=== PATIENT | male | born 1950 | race Caucasian/White ===

== ENCOUNTER 2017-02-03 19:40 | Emergency (ER) | payer MEDICARE, OTHER ==
[2017-02-03] MEDS ORDERED: ORPHENADRINE CITRATE 60MG/2ML VIAL IM ONE (19:51)
[2017-02-03] MEDS ORDERED: HYDROCODONE/APAP 5/325MG TABLET PO ONE ×2 (19:51→20:18)
--- NOTE | 2017-02-03 19:56 | Emergency Department Record ---
History of Present Illness - General Chief Complaint: Back Pain/Injury Stated Complaint: BACK PAIN Time Seen by Provider: 02/03/17 19:50 Source: Patient Mode of Arrival: Ambulatory Limitations: No limitations - History of Present Illness Initial Comments: 66 yo male presents with low back pain on the right. He was lifting a heavy board the day prior. He has had recurrent similar pain in this area prior. He has pain with standing, lifting, twisting, bending. No abdominal pain. No weakness or changes in sensation. No radiation to the legs. No hematuria. No changes in bowel movements. PCP is Adan Mayberry MD Complaint: Back pain, Back injury (Lifting a heavy board the day prior) -: Days(s) (2) Place: Home Radiation: None Severity: Moderate Quality: Aching Consistency: Constant Improves With: Immobilization Worsens With: Immobilization Context: Turning/twisting Associated Symptoms: Denies other symptoms - Related Data Home Medications Medication Instructions Recorded Confirmed Last Taken Omeprazole [Prilosec] 20 mg PO DAILY 02/03/17 02/03/17 02/03/17 Previous Rx's Medication Instructions Recorded Cyclobenzaprine HCl [Flexeril] 10 mg PO TID #25 tablet 02/03/17 Hydrocodone/Acetaminophen [[place] 1 each PO Q6H PRN #20 tablet 02/03/17 5-325 Tablet] Allergies Allergy/AdvReac Type Severity Reaction Status Date / Time No Known Drug Allergies Allergy Verified 02/03/17 19:57 Review of Systems Constitutional: Denies: Chills, Fever, Malaise, Weakness Eyes: Denies: Eye discharge ENT: Denies: Congestion, Throat pain Respiratory: Denies: Cough, Dyspnea, Hemoptysis, Stridor, Wheezes Cardiovascular: Denies: Chest pain, Palpitations, Syncope Endocrine: Denies: Fatigue Gastrointestinal: Denies: Abdominal pain, Diarrhea, Hematochezia, Melena, Nausea , Vomiting Genitourinary: Denies: Dysuria, Frequency, Hematuria, Retention, Testicular pain , Urgency Musculoskeletal: Reports: As per HPI, Back pain, Myalgia. Denies: Arthralgia Skin: Denies: Bruising, Change in color, Rash Neurological: Denies: Headache Psychiatric: Denies: Anxiety Hematological/Lymphatic: Denies: Blood Clots, Easy bleeding, Easy bruising, Swollen glands Physical Exam - General General Appearance: Alert, Oriented x3, Cooperative, No acute distress Limitations: No limitations - Head Head exam: Normal inspection - Eye Eye exam: Normal appearance - ENT ENT exam: Normal exam Ear exam: Normal external inspection Nasal Exam: Normal inspection Mouth exam: Normal external inspection Teeth exam: Normal inspection - Neck Neck exam: Normal inspection - Respiratory Respiratory exam: Normal lung sounds bilaterally. negative: Respiratory distress - Cardiovascular Cardiovascular Exam: Regular rate, Normal rhythm, Normal heart sounds Peripheral Pulses: 2+: Radial (R), Radial (L) - GI/Abdominal GI/Abdominal exam: Soft. negative: Distended, Pulsatile mass, Tenderness - Rectal Rectal exam: Deferred - exam: Deferred - Extremities Extremities exam: Normal inspection, Full ROM, Normal capillary refill. negative: Calf tenderness, Joint swelling, Pedal edema, Tenderness - Back Back exam: Reports: Normal inspection, Muscle spasm, Tenderness. Denies: CVA tenderness (R), CVA tenderness (L), Full ROM (muscle spasm), Rash noted, Vertebral tenderness Image of Body Front/Back: 1 - Tenderness to the right lower back/ lumbar area with reproducible tenderness, pain with trying to stand and twist relieved if sitting still - Neurological Neurological exam: Alert, Normal gait, Oriented X3, Reflexes normal. negative: Abnormal gait (ambulated to the room unassisted), Altered, Motor sensory deficit - Psychiatric Psychiatric exam: Normal affect, Normal mood. negative: Agitated, Anxious - Skin Skin exam: Dry, Intact, Normal color, Warm Course Vital Signs 02/03/17 19:47 Temperature 98.7 F Pulse Rate [ 77 Pulse Ox Probe] Respiratory 16 Rate Blood Pressure 163/94 [Left Arm] Pulse Ox 95 - Reevaluation(s) Reevaluation #1: The patient is doing better We discussed home care and DC We discussed reasons to return to the ED 02/03/17 20:19 Disposition Disposition: Discharge Clinical Impression: Lumbar strain Qualifiers: Encounter type: initial encounter Qualified Code(s): S39.012A - Strain of muscle, fascia and tendon of lower back, initial encounter Disposition: Home, Self-Care Condition: (1) Good Instructions: Low Back Strain (ED) Additional Instructions: Return if you have any new symptoms or concerns Rest and avoid lifting or over exertion Prescriptions: Cyclobenzaprine HCl [Flexeril] 10 mg PO TID #25 tablet Hydrocodone/Acetaminophen [[place] 5-325 Tablet] 1 each PO Q6H PRN #20 tablet PRN Reason: pain Forms: Patient Portal Access Time of Disposition: 20:04
[2017-02-03] MEDS ORDERED: CYCLOBENZAPRINE 10MG TABLET PO ONE (20:18)
== END 2017-02-03 20:44 | disposition home or self-care (01) ==
LOC: ER 19:40
DX: S39.012A Strain of muscle, fascia and tendon of lower back, initial encounter (principal); X50.0XXA Overexertion from strenuous movement or load, initial encounter; Y92.009 Unspecified place in unspecified non-institutional (private) residence as the place of occurrence of the external cause
CPT/HCPCS: 96372; 99283; J2360

== ENCOUNTER 2018-11-02 21:46 | Emergency (ER) | payer MEDICARE, OTHER ==
[2018-11-02] MEDS ORDERED: 0.9 % SODIUM CHLORIDE 1,000 ML BAG IV ONE (22:07)
[2018-11-02] MEDS ORDERED: ONDANSETRON HCL IV 4 MG/2 ML VIAL IV ONE (22:07)
--- NOTE | 2018-11-02 22:14 | Emergency Department Record ---
History of Present Illness - General Chief Complaint: Abdominal Pain Stated Complaint: ABD PAIN Time Seen by Provider: 11/02/18 21:57 Source: Patient Mode of Arrival: Ambulatory Limitations: No limitations - History of Present Illness Initial Comments: The patient is here due to a 5 day hx of intermittent AP. The pain is sharp and stabbing and located in the LUQ and LLQ. The onset is after eating. The pain first started 5 days ago and then got worse yesterday. Tonight it became worse after eating so the patient took Tylenol and Advil and it now has resolved. The patient denies any CP, SOB, back pain, nausea, vomiting, diarrhea, fever or any previous abdominal surgeries. He has no hx of similar problems and presently is feeling much better. MD Complaint: Abdominal pain Onset/Timin -: Days(s) Location: LUQ, LLQ Radiation: Other Migration to: Other Severity: Moderate Severity scale (1-10): 5 Quality: Sharp, Stabbing Consistency: Intermittent Improves With: Medication Worsens With: Eating Context: Recent surgery/procedure Associated Symptoms: Other Treatments Prior to Arrival: Other - Related Data Previous Rx's Medication Instructions Recorded Ondansetron [Zofran Odt] 4 mg SL .Q4-6H PRN #12 tab.rapdis 11/02/18 Tamsulosin HCl [Flomax] 0.4 mg PO DAILY #7 cap.er.24h 11/02/18 Tramadol HCl 50 mg PO Q8H #15 tab 11/02/18 Allergies Allergy/AdvReac Type Severity Reaction Status Date / Time hydrocodone Allergy BLISTERS Verified 11/02/18 21:58 Travel Screening - Travel/Exposure Within Last 30 Days Have you traveled within the last 30 days?: No - Travel Symptoms Symptom Screening: None Review of Systems Constitutional: Denies: Chills, Fever, Other Eyes: Denies: Eye discharge ENT: Denies: Congestion Respiratory: Denies: Cough Cardiovascular: Denies: Arrhythmia, Chest pain Endocrine: Denies: Fatigue Gastrointestinal: Reports: Abdominal pain. Denies: Diarrhea, Nausea, Vomiting Genitourinary: Denies: Dysuria Musculoskeletal: Denies: Arthralgia Skin: Denies: Bruising Past Medical History - SOCIAL HISTORY Smoking Status: Never smoker Alcohol Use: Rare Drug Use: None - RESPIRATORY Hx Respiratory Disorders: Yes Hx Sleep Apnea: Yes Hx of CPAP: Yes - CARDIOVASCULAR Hx Cardio Disorders: Yes Hx Abnormal EKG: Yes (LBBB) Hx Hypertension: Yes - NEURO Hx Neuro Disorders: No - GI Hx GI Disorders: Yes Comment:: Lopez's esophagus w/ERM tx - Hx Genitourinary Disorders: No - ENDOCRINE Hx Endocrine Disorders: No - MUSCULOSKELETAL Hx Musculoskeletal Disorders: Yes Hx Arthritis: Yes - PSYCH Hx Psych Problems: No - HEMATOLOGY/ONCOLOGY Hx Hematology/Oncology Disorders: No Family Medical History Any Significant Family History?: Yes Family Hx Comment (NOT TO BE USED IN PLACE OF ITEMS BELOW): Siblings x4 w/ Muscular dystrophy Hx Diabetes: Brother/Sister Hx Heart Disease: Mother Hx Kidney Disease: Mother Hx Resp Disorders: Father Physical Exam - General General Appearance: Alert, Oriented x3, Cooperative, No acute distress - Head Head exam: Atraumatic, Normocephalic - Eye Eye exam: Normal appearance, PERRL - Neck Neck exam: Normal inspection, Full ROM. negative: Tenderness - Respiratory Respiratory exam: Normal lung sounds bilaterally. negative: Respiratory distress - Cardiovascular Cardiovascular Exam: Regular rate, Normal rhythm, Normal heart sounds - GI/Abdominal GI/Abdominal exam: Soft, Normal bowel sounds. negative: Bruit, Guarding, Pulsatile mass, Rebound, Rigid, Tenderness (The abdomen is very soft and nontender in all 4 quads.) - Extremities Extremities exam: Normal inspection, Full ROM, Normal capillary refill. negative: Tenderness - Back Back exam: Reports: Normal inspection - Neurological Neurological exam: Alert. negative: Motor sensory deficit - Psychiatric Psychiatric exam: negative: Anxious - Skin Skin exam: negative: Rash Course Vital Signs 11/02/18 21:53 Temperature 98.2 F Pulse Rate [ 82 Pulse Ox Probe] Respiratory 20 Rate Blood Pressure 185/123 [Left Arm] Pulse Ox 96 - Reevaluation(s) Reevaluation #1: The patient is doing very well at this time. He has no pain or nausea now. I did discuss the CT results and the need for Urology F/U. The patient is to take his home pain medicines and is to see Urology next week. He is to return to the ER for any worsening pain, fever, or vomiting. 11/02/18 23:10 Medical Decision Making - Data Complexity MDM Data: Labs Ordered and/or Reviewed, X-Ray Ordered and/or Reviewed - Lab Data Result diagrams: 11/02/18 22:19 11/02/18 22:19 - Radiology Data Radiology results: Report reviewed (CT: 10x7 mm distal L ureter stone at UVJ with hydro. ) Disposition Disposition: Discharge Clinical Impression: Ureteral stone with hydronephrosis Disposition: Home, Self-Care Condition: (2) Stable Instructions: Ureteral Stones (ED) Additional Instructions: Please take your home pain medicines as needed and also use Tramadol if needed. Take Zofran for nausea, and use the Flomax as directed until the stone passes. Please see a Urologist next week for further evaluation. Return to the ER for any worsening pain, fever, or vomiting. Prescriptions: Ondansetron [Zofran Odt] 4 mg SL .Q4-6H PRN #12 tab.rapdis PRN Reason: Nausea Tamsulosin HCl [Flomax] 0.4 mg PO DAILY #7 cap.er.24h Tramadol HCl 50 mg PO Q8H #15 tab Referrals: TK ENRIQUEZ M.D. [MEDICAL DOCTOR] - Forms: Patient Portal Access Quality - Quality Measures Quality Measures: N/A - Blood Pressure Screening View Details: Yes Does Patient Have Any of the Following: No Blood Pressure Classification: Hypertensive Reading Systolic Measurement: 152 Diastolic Measurement: 93 Screening for High Blood Pressure: < First Hypertensive BP, F/U Documented > [ [id number]] First Hypertensive Follow-up Interventions: Referral to alternative/primary care provider.
[2018-11-02 22:21] LABS: BASO % 0.7 % (0-6); EOS % 2.8 % (0-6); HEMATOCRIT 41.9 % (42.0-52.0); HEMOGLOBIN 13.9 gm/dl (14.0-18.0); LYMPH % 37.1 % (16-45); MEAN CELL VOLUME 91.3 fl (81-97); MEAN CORPUSCULAR HGB CONC 33.2 g/dl (32-36); MEAN PLATELET VOLUME 9.5 fl (7.4-10.4); MONO % 13.4 % (0-9); PLATELET COUNT 212 K/uL (130-400); RED BLOOD COUNT 4.59 M/uL (4.40-5.70); RED CELL DISTRIBUTION WIDTH 13.5 % (11.5-14.5); WHITE BLOOD COUNT W/O DIFF 7.4 K/uL (4.2-12.2)
[2018-11-02 22:22] LABS: MEAN CORPUSCULAR HEMOGLOBIN 30.2 pg (27-33)
[2018-11-02 22:30] LABS: BLOOD UREA NITROGEN 15 mg/dL (8-23); CREATININE 0.8 mg/dL (0.7-1.2); EST GLOMERULAR FILTRATION RATE > 60 mL/min
[2018-11-02 22:31] LABS: LIPASE 28 U/L (13-60); TOTAL PROTEIN 7.1 g/dL (6.6-8.7)
[2018-11-02 22:33] LABS: GLUCOSE,RANDOM 111 mg/dL (74-109)
[2018-11-02 22:35] LABS: ALT/SGPT 18 U/L (<41)
[2018-11-02 22:36] LABS: ALBUMIN 4.3 g/dL (4.0-5.0); ALKALINE PHOSPHATASE 82 U/L (40-129); AST/SGOT 14 U/L (10.0-50.0); BILIRUBIN,DIRECT < 0.2 mg/dL (0-0.3)
[2018-11-02 22:56] LABS: URINE APPEARANCE CLEAR; URINE BILIRUBIN NEGATIVE (NEGATIVE); URINE BLOOD LARGE (NEGATIVE); URINE COLOR YELLOW; URINE GLUCOSE (UA) NEGATIVE (NEGATIVE); URINE KETONE NEGATIVE (NEGATIVE); URINE LEUKOCYTE ESTERASE NEGATIVE (NEGATIVE); URINE NITRITE NEGATIVE (NEGATIVE); URINE PROTEIN NEGATIVE (NEGATIVE); URINE UROBILINOGEN 0.2 E.U./dL (0.20 - 1.00)
[2018-11-02 22:57] LABS: URINE BACTERIA NONE SEEN; URINE EPITHELIAL CELLS 0 - 2 (FEW); URINE WBC 0 - 2 (0-2/hpf)
--- NOTE | 2018-11-06 11:13 | CT SCAN REPORT ---
EXAM: CT OF THE ABDOMEN AND PELVIS HISTORY: LEFT LOWER QUADRANT PAIN. TECHNIQUE: CT of the abdomen and pelvis was performed without intravenous or oral contrast. Comparison: None. FINDINGS: The lung bases are unremarkable. There is a large calculus in the distal left ureter. This measures approximately 10 x 7 mm. This is located at the left ureterovesical junction. This causes mild left hydronephrosis and left hydroureter. There are no other renal or ureteral calculi. The unenhanced liver and spleen are unremarkable. There is probably a tiny hepatic cyst measuring 5 mm in size. The liver is otherwise unremarkable. No pancreatic mass or inflammatory change. There are no calcified gallstones. No adrenal lesion. No aortic aneurysm. No periaortic mass or adenopathy. There are no dilated bowel loops. The appendix is unremarkable. No pelvic mass, abscess or adenopathy. No free air or free fluid. The prostate gland is enlarged. There is diverticulosis without CT evidence for diverticulitis. IMPRESSION: 1. 10 X 7 MM CALCULUS IN THE DISTAL LEFT URETER CAUSING MILD LEFT HYDRONEPHROSIS. NO OTHER RENAL OR URETERAL CALCULI. 2. NOT MENTIONED ABOVE PRONOUNCED ARTHRITIC CHANGES IN THE LOWER LUMBAR SPINE. 3. DIVERTICULOSIS WITHOUT CT EVIDENCE FOR DIVERTICULITIS. 4. PROSTATIC ENLARGEMENT. JOB NUMBER: [id number] MTDD
== END 2018-11-02 23:23 | disposition home or self-care (01) ==
LOC: ER 21:46
DX: N13.2 Hydronephrosis with renal and ureteral calculous obstruction (principal); I10 Essential (primary) hypertension
CPT/HCPCS: 99284 ×2; 96374; 83690; 85025; 80076; 80048; 81001; 74176; J2405; J7030